=== PATIENT | female | born 1955 | race Caucasian/White ===

== ENCOUNTER → 2023-04-28 | Outpatient (CLI) | payer OTHER ==
[2023-04-28 21:32] VITALS: PULSE 55; RESP 18
[2023-04-28 22:00] VITALS: PULSE 58; RESP 16
[2023-04-28 22:31] VITALS: PULSE 58; RESP 16
[2023-04-28 23:00] VITALS: PULSE 57; RESP 16
[2023-04-28 23:36] VITALS: PULSE 59; RESP 16
[2023-04-28 23:57] VITALS: PULSE 70; RESP 16
[2023-04-29] VITALS (11 sets, daily range): PULSE 51–60; RESP 14–16
== END | disposition home or self-care (01) ==
LOC: SLP 19:55
PROVIDERS: ATTEND Internal Medicine
DX: G47.33 Obstructive sleep apnea (adult) (pediatric) (principal)
CPT/HCPCS: 95810

== ENCOUNTER → 2023-05-05 | Outpatient (CLI) | payer OTHER ==
[2023-05-05 21:53] VITALS: PULSE 50; RESP 18
[2023-05-05 22:32] VITALS: PULSE 54; RESP 13
[2023-05-05 22:53] VITALS: PULSE 54; RESP 15
[2023-05-05 23:10] VITALS: PULSE 50; RESP 12
[2023-05-05 23:20] VITALS: PULSE 53; RESP 15
[2023-05-05 23:27] VITALS: PULSE 51; RESP 17
[2023-05-06] VITALS (13 sets, daily range): PULSE 44–50; RESP 9–20
== END | disposition home or self-care (01) ==
LOC: EDUNIT# 04-04 20:30 → SLP 20:48
PROVIDERS: ATTEND Internal Medicine
DX: G47.33 Obstructive sleep apnea (adult) (pediatric) (principal)
CPT/HCPCS: 95811